=== PATIENT | male | born 1970 | race Caucasian/White ===

== ENCOUNTER 2017-07-23 15:43 | Emergency (ER) | payer OTHER ==
[2017-07-23] MEDS: diazePAM 5 MG TABLET PO ×2 (16:28)
[2017-07-23] MEDS: HYDROcodone/APAP 5/325MG 1 TAB TABLET PO ×2 (16:28)
== END 2017-07-23 16:29 | disposition home or self-care (01) ==
LOC: ER 15:43
DX: G89.29 Other chronic pain (principal); M54.5 Low back pain; I10 Essential (primary) hypertension
CPT/HCPCS: 99283